=== PATIENT | female | born 1955 | race Caucasian/White ===

== ENCOUNTER 2018-05-15 12:17 | Outpatient (REF) | payer BC, SELFPAY ==
[2018-05-15 21:07] LABS: Absolute Basophil Count 0.02 k/cumm (0.0-0.2); Absolute Lymphocyte Count 1.47 k/cumm (1.2-3.4); Absolute Monocyte Count 0.43 k/cumm (0.11-0.7); Absolute Neutrophil Count 2.08 k/cumm (1.2-6.7); Basophils % 0.5; HCT 41.7 % (36.0-46.0); HGB 13.7 g/dL (12.0-15.5); Lymphocytes % 36.8; Mean Corp. HGB Concentration 32.9 g/dL (32.0-36.0); Mean Corpuscular Hemoglobin 31.1 pg (27.0-33.0); Mean Corpuscular Volume 94.6 fL (80-95); Mean Platelet Volume 10.8 fL (8.0-11.0); Monocytes % 10.8; Neutrophils % 51.9; Platelet Count 260 x1000/uL (130-400); RBC 4.41 m/cumm (4.00-5.20); RBC Distribution Width 13.7 % (11.7-14.6)
[2018-05-15 22:00] LABS: Iron 130 ug/dL (50-175); Total Iron Binding Capacity 346 ug/dL (250-450); Transferrin Sat 38 % (15-50)
[2018-05-15 22:12] LABS: Vitamin D 25 Total 24.6 ng/ml (30-100)
[2018-05-15 22:20] LABS: Cholesterol 226 mg/dL (50-200); Ferritin 22 ng/mL (8-388); HDL Cholesterol 72 mg/dL (40-60); LDL CHOLESTEROL 121 mg/dL (<100); TSH (W/Ref FT4) 0.93 uIU/mL (0.358-3.74); Triglyceride 156 mg/dL (30-150); Vitamin B12 365 pg/mL (193-986)
[2018-05-16 12:27] LABS: ALT 26 U/L (12-78); AST 22 U/L (15-37); Albumin 3.9 g/dL (3.4-5.0); Alkaline Phosphatase 93 U/L (46-116); Anion Gap 9.9 mmol/L (3-11); BUN 13 mg/dL (7-18); Bilirubin, Total 0.4 mg/dL (0.2-1.0); CO2 30.1 mmol/L (21.0-32.0); CREATININE 0.75 mg/dL (0.55-1.02); Calcium 9.7 mg/dL (8.5-10.1); Chloride 102 mmol/L (98-107); Glucose 105 mg/dL (70-100); Potassium 4.1 mmol/L (3.5-5.1); Sodium 142 mmol/L (136-145); Total Protein 7.3 g/dL (6.4-8.2)
== END 2018-05-15 12:37 ==
LOC: NCHCN 12:17
PROVIDERS: PCP Family Medicine; Visit Provider Nurse Practitioner Family
DX: R53.83 Other fatigue (principal); I10 Essential (primary) hypertension; E78.5 Hyperlipidemia, unspecified; R51 Headache; E11.9 Type 2 diabetes mellitus without complications; G47.33 Obstructive sleep apnea (adult) (pediatric); J01.90 Acute sinusitis, unspecified; I63.9 Cerebral infarction, unspecified
CPT/HCPCS: 80053; 80061; 82306; 83721; 82607; 82728; 83540; 83550; 84443; 85025

== ENCOUNTER 2018-09-01 09:44 | Outpatient (CLI) | payer BC, SELFPAY ==
[2018-09-01 10:19] LABS: Abs Immature Grans 0.01 k/cumm (0.0-0.09); Absolute Basophil Count 0.03 k/cumm (0.0-0.2); Absolute Lymphocyte Count 1.45 k/cumm (1.2-3.4); Absolute Monocyte Count 0.39 k/cumm (0.11-0.7); Absolute Neutrophil Count 2.15 k/cumm (1.2-6.7); Basophils % 0.7; HCT 41.7 % (36.0-46.0); HGB 13.6 g/dL (12.0-15.5); Immature Grans % 0.2; Mean Corp. HGB Concentration 32.6 g/dL (32.0-36.0); Mean Corpuscular Hemoglobin 31.8 pg (27.0-33.0); Mean Corpuscular Volume 97.4 fL (80-95); Mean Platelet Volume 10.2 fL (8.0-11.0); Monocytes % 9.7; Neutrophils % 53.4; Platelet Count 231 x1000/uL (130-400); RBC 4.28 m/cumm (4.00-5.20); RBC Distribution Width 13.3 % (11.7-14.6); White Blood Cell Count 4.03 k/cumm (4.4-10.8)
[2018-09-01 11:08] LABS: Iron 134 ug/dL (50-175); Total Iron Binding Capacity 308 ug/dL (250-450); Transferrin Sat 44 % (15-50)
[2018-09-01 11:36] LABS: Ferritin 48 ng/mL (8-388); Folate 4.9 ng/mL (8.6-20.0); TSH 1.02 uIU/mL (0.358-3.74); Vitamin B12 629 pg/mL (193-986)
== END 2018-09-01 10:04 ==
PROVIDERS: PCP Nurse Practitioner Family; Visit Provider Internal Medicine
DX: G47.33 Obstructive sleep apnea (adult) (pediatric) (principal)
CPT/HCPCS: 36415; 82607; 82728; 82746; 83540; 83550; 84443; 85025

== ENCOUNTER 2018-10-09 09:32 | Outpatient (REF) | payer BC, SELFPAY ==
[2018-10-09 13:38] LABS: Cholesterol 183 mg/dL (50-200); HDL Cholesterol 67 mg/dL (40-60); LDL CHOLESTEROL 93 mg/dL (<100); Triglyceride 71 mg/dL (30-150)
[2018-10-15 10:17] LABS: Hepatitis C Ab w Rflx HCV PCR Negative (NEGAT)
== END 2018-10-09 09:52 ==
LOC: NCHCN 09:32
PROVIDERS: PCP Nurse Practitioner Family; Visit Provider Nurse Practitioner Family
DX: E78.5 Hyperlipidemia, unspecified (principal); Z11.59 Encounter for screening for other viral diseases; I10 Essential (primary) hypertension; Z00.00 Encounter for general adult medical examination without abnormal findings
CPT/HCPCS: 80061; 83721; 86803

== ENCOUNTER 2018-10-17 16:00 | Outpatient (REF) | payer BC, SELFPAY ==
[2018-10-17 18:14] LABS: *AMPHETAMINES SCREEN URINE Negative (Negative); *BARBITURATES SCREEN URINE Negative (Negative); *BENZODIAZEPINES SCREEN URINE Negative (Negative); Cannabinoids THC Negative (Negative); Cocaine Screen,Urine Negative (Negative); METHADONE URINE SCREEN Negative (Negative); OPIATES URINE SCREEN Negative (Negative)
[2018-10-17 18:15] LABS: Tricyclic Antidepressants Negative (Negative)
[2018-10-17 21:10] LABS: ALT 33 U/L (12-78); AST 21 U/L (15-37); Albumin 3.8 g/dL (3.4-5.0); Alkaline Phosphatase 99 U/L (46-116); BUN 17 mg/dL (7-18); Bilirubin, Total 0.3 mg/dL (0.2-1.0); CREATININE 0.78 mg/dL (0.55-1.02); Calcium 9.8 mg/dL (8.5-10.1); Chloride 104 mmol/L (98-107); Glucose 95 mg/dL (70-100); Potassium 4.7 mmol/L (3.5-5.1); Sodium 140 mmol/L (136-145); Total Protein 7.1 g/dL (6.4-8.2)
== END 2018-10-17 16:20 ==
LOC: NCHCN 16:00
PROVIDERS: Internal Medicine; PCP Nurse Practitioner Family; Visit Provider Nurse Practitioner Family
DX: I10 Essential (primary) hypertension (principal); G47.419 Narcolepsy without cataplexy
CPT/HCPCS: 80053; 80307

== ENCOUNTER 2018-12-11 13:48 | Outpatient (REF) | payer BC, SELFPAY ==
[2018-12-11 21:45] LABS: Absolute Basophil Count 0.03 k/cumm (0.0-0.2); Absolute Lymphocyte Count 1.69 k/cumm (1.2-3.4); Absolute Neutrophil Count 1.57 k/cumm (1.2-6.7); Basophils % 0.8; HCT 42.3 % (36.0-46.0); HGB 13.8 g/dL (12.0-15.5); Lymphocytes % 45.8; Mean Corp. HGB Concentration 32.6 g/dL (32.0-36.0); Mean Corpuscular Hemoglobin 32.2 pg (27.0-33.0); Mean Corpuscular Volume 98.8 fL (80-95); Mean Platelet Volume 11.6 fL (8.0-11.0); Monocytes % 10.8; Neutrophils % 42.6; Platelet Count 237 x1000/uL (130-400); RBC 4.28 m/cumm (4.00-5.20); RBC Distribution Width 12.7 % (11.7-14.6); White Blood Cell Count 3.69 k/cumm (4.4-10.8)
[2018-12-11 22:15] LABS: ALT 30 U/L (12-78); AST 18 U/L (15-37); Albumin 3.8 g/dL (3.4-5.0); Alkaline Phosphatase 110 U/L (46-116); BUN 16 mg/dL (7-18); Bilirubin, Total 0.4 mg/dL (0.2-1.0); CREATININE 0.73 mg/dL (0.55-1.02); Calcium 9.1 mg/dL (8.5-10.1); Chloride 104 mmol/L (98-107); Glucose 98 mg/dL (70-100); Potassium 4.2 mmol/L (3.5-5.1); Sodium 142 mmol/L (136-145); TSH (W/Ref FT4) 0.85 uIU/mL (0.36-3.74); Total Protein 7.2 g/dL (6.4-8.2)
== END 2018-12-11 14:08 ==
LOC: NCHCN 13:48
PROVIDERS: Visit Provider Nurse Practitioner Family
DX: B37.2 Candidiasis of skin and nail (principal); M54.2 Cervicalgia; J01.90 Acute sinusitis, unspecified; I10 Essential (primary) hypertension; E78.5 Hyperlipidemia, unspecified; G47.33 Obstructive sleep apnea (adult) (pediatric); E66.9 Obesity, unspecified
CPT/HCPCS: 80053; 84443; 85025

== ENCOUNTER 2018-12-16 00:50 | Outpatient (CLI) | payer BC, SELFPAY ==
--- NOTE | 2018-12-16 08:00 | DI.US_ITS ---
SYMPTOM/DIAGNOSIS: FATTY INFILTRATION OF THE LIVER K76.0 ABDOMINAL ULTRASOUND: Routine examination. No priors The aorta is of normal caliber. The inferior vena cava is unremarkable. The liver measures 16 cm in length. It is isoechoic to the kidney. No hepatic mass is seen. The patient is status post cholecystectomy. The common duct measures 7.7 mm. This is likely due to the post cholecystectomy state. The pancreas, spleen and kidneys are unremarkable. No free fluid is seen in the abdomen. IMPRESSION: Status post cholecystectomy, otherwise unremarkable abdominal ultrasound
== END 2018-12-16 01:10 ==
PROVIDERS: PCP Nurse Practitioner Family; Visit Provider Nurse Practitioner Family
DX: K76.0 Fatty (change of) liver, not elsewhere classified (principal); Z90.49 Acquired absence of other specified parts of digestive tract
CPT/HCPCS: 76700

== ENCOUNTER 2018-12-24 10:31 | Outpatient (CLI) | payer BC, SELFPAY ==
--- NOTE | 2018-12-24 09:27 | DI.RAD_ITS ---
SYMPTOM/DIAGNOSIS: PAIN RIGHT HIP AND PELVIS: The hip joint spaces are well maintained. There is mild acetabular spurring and spurring at both greater trochanters. There is hardware in the lower lumbar spine. A sacral stimulator is noted. IMPRESSION: Mild degenerative changes of both hips.
== END 2018-12-24 10:51 ==
PROVIDERS: PCP Nurse Practitioner Family; Visit Provider Orthopaedic Surgery
DX: M25.551 Pain in right hip (principal); M16.0 Bilateral primary osteoarthritis of hip; Z96.9 Presence of functional implant, unspecified
CPT/HCPCS: 73502

== ENCOUNTER 2019-03-12 12:23 | Outpatient (REF) | payer BC, SELFPAY ==
[2019-03-12 21:21] LABS: Abs Immature Grans 0.01 k/cumm (0.0-0.09); Absolute Basophil Count 0.03 k/cumm (0.0-0.2); Absolute Lymphocyte Count 1.31 k/cumm (1.2-3.4); Absolute Monocyte Count 0.42 k/cumm (0.11-0.7); Absolute Neutrophil Count 2.19 k/cumm (1.2-6.7); Basophils % 0.8; HCT 42.3 % (36.0-46.0); HGB 13.7 g/dL (12.0-15.5); Immature Grans % 0.3; Lymphocytes % 33.1; Mean Corp. HGB Concentration 32.4 g/dL (32.0-36.0); Mean Corpuscular Hemoglobin 31.9 pg (27.0-33.0); Mean Corpuscular Volume 98.6 fL (80-95); Mean Platelet Volume 11.1 fL (8.0-11.0); Monocytes % 10.6; Neutrophils % 55.2; Platelet Count 250 x1000/uL (130-400); RBC 4.29 m/cumm (4.00-5.20); RBC Distribution Width 12.9 % (11.7-14.6); White Blood Cell Count 3.96 k/cumm (4.4-10.8)
== END 2019-03-12 12:43 ==
LOC: NCHCN 12:23
PROVIDERS: PCP Nurse Practitioner Family; Visit Provider Nurse Practitioner Family
DX: D72.819 Decreased white blood cell count, unspecified (principal); I10 Essential (primary) hypertension; R73.03 Prediabetes
CPT/HCPCS: 85025

== ENCOUNTER 2019-04-07 15:13 | Outpatient (REF) | payer BC, SELFPAY ==
[2019-04-07 16:09] LABS: *AMPHETAMINES SCREEN URINE POSITIVE (Negative); *BARBITURATES SCREEN URINE Negative (Negative); *BENZODIAZEPINES SCREEN URINE Negative (Negative); Cannabinoids THC Negative (Negative); Cocaine Screen,Urine Negative (Negative); METHADONE URINE SCREEN Negative (Negative); OPIATES URINE SCREEN Negative (Negative)
[2019-04-07 16:36] LABS: Tricyclic Antidepressants Negative (Negative)
== END 2019-04-07 15:33 ==
LOC: LBN 15:13
PROVIDERS: PCP Nurse Practitioner Family; Visit Provider Internal Medicine
DX: G47.419 Narcolepsy without cataplexy (principal)
CPT/HCPCS: 80307

== ENCOUNTER 2019-05-01 14:03 | Outpatient (CLI) | payer BC, SELFPAY ==
[2019-05-01 14:41] LABS: Absolute Basophil Count 0.02 k/cumm (0.0-0.2); Absolute Lymphocyte Count 1.77 k/cumm (1.2-3.4); Absolute Monocyte Count 0.54 k/cumm (0.11-0.7); Basophils % 0.4; HCT 41.2 % (36.0-46.0); HGB 13.4 g/dL (12.0-15.5); Lymphocytes % 34.5; Mean Corp. HGB Concentration 32.5 g/dL (32.0-36.0); Mean Corpuscular Hemoglobin 31.8 pg (27.0-33.0); Mean Corpuscular Volume 97.6 fL (80-95); Mean Platelet Volume 10.5 fL (8.0-11.0); Monocytes % 10.5; Neutrophils % 54.6; Platelet Count 231 x1000/uL (130-400); RBC 4.22 m/cumm (4.00-5.20); RBC Distribution Width 12.7 % (11.7-14.6); White Blood Cell Count 5.13 k/cumm (4.4-10.8)
[2019-05-01 15:42] LABS: ALT 23 U/L (14-59); AST 18 U/L (15-37); Albumin 3.9 g/dL (3.4-5.0); Alkaline Phosphatase 106 U/L (46-116); Anion Gap 8.2 mmol/L (3-11); BUN 17 mg/dL (7-18); Bilirubin, Total 0.4 mg/dL (0.2-1.0); CO2 30.8 mmol/L (21.0-32.0); CREATININE 0.86 mg/dL (0.55-1.02); Calcium 9.2 mg/dL (8.5-10.1); Chloride 101 mmol/L (98-107); Glucose 86 mg/dL (74-106); Potassium 4.1 mmol/L (3.5-5.1); Sodium 140 mmol/L (136-145); Total Protein 7.3 g/dL (6.4-8.2)
== END 2019-05-01 14:23 ==
PROVIDERS: PCP Nurse Practitioner Family; Visit Provider Internal Medicine Rheumatology
DX: L40.50 Arthropathic psoriasis, unspecified (principal); Z79.899 Other long term (current) drug therapy
CPT/HCPCS: 36415; 80053; 85025

== ENCOUNTER 2019-05-21 12:09 | Outpatient (REF) | payer BC, SELFPAY ==
[2019-05-21 21:49] LABS: Abs Immature Grans 0.01 k/cumm (0.0-0.09); Absolute Basophil Count 0.02 k/cumm (0.0-0.2); Absolute Lymphocyte Count 1.37 k/cumm (1.2-3.4); Absolute Monocyte Count 0.48 k/cumm (0.11-0.7); Absolute Neutrophil Count 1.44 k/cumm (1.2-6.7); Basophils % 0.6; HCT 40.4 % (36.0-46.0); HGB 13.3 g/dL (12.0-15.5); Immature Grans % 0.3 %; Lymphocytes % 41.3; Mean Corp. HGB Concentration 32.9 g/dL (32.0-36.0); Mean Corpuscular Hemoglobin 32.2 pg (27.0-33.0); Mean Corpuscular Volume 97.8 fL (80-95); Mean Platelet Volume 11.1 fL (8.0-11.0); Monocytes % 14.5; Neutrophils % 43.3; Platelet Count 236 x1000/uL (130-400); RBC 4.13 m/cumm (4.00-5.20); RBC Distribution Width 12.8 % (11.7-14.6); White Blood Cell Count 3.32 k/cumm (4.4-10.8)
[2019-05-21 22:20] LABS: ALT 21 U/L (14-59); AST 18 U/L (15-37); Albumin 3.6 g/dL (3.4-5.0); Alkaline Phosphatase 101 U/L (46-116); Anion Gap 10.4 mmol/L (3-11); BUN 16 mg/dL (7-18); Bilirubin, Total 0.4 mg/dL (0.2-1.0); CO2 28.6 mmol/L (21.0-32.0); CREATININE 0.68 mg/dL (0.55-1.02); Calcium 9.2 mg/dL (8.5-10.1); Chloride 104 mmol/L (98-107); Glucose 88 mg/dL (74-106); Potassium 4.3 mmol/L (3.5-5.1); Sodium 143 mmol/L (136-145)
== END 2019-05-21 12:29 ==
LOC: NCHCN 12:09
PROVIDERS: PCP Nurse Practitioner Family; Visit Provider Nurse Practitioner Family
DX: I10 Essential (primary) hypertension (principal); E78.5 Hyperlipidemia, unspecified; R19.7 Diarrhea, unspecified; F41.8 Other specified anxiety disorders; R73.03 Prediabetes
CPT/HCPCS: 80053; 85025

== ENCOUNTER 2019-10-13 15:37 | Outpatient (REF) | payer BC, SELFPAY ==
[2019-10-13 20:33] LABS: Absolute Basophil Count 0.02 k/cumm (0.0-0.2); Absolute Lymphocyte Count 1.38 k/cumm (1.2-3.4); Absolute Monocyte Count 0.51 k/cumm (0.11-0.7); Absolute Neutrophil Count 1.94 k/cumm (1.2-6.7); Basophils % 0.5; HCT 40.9 % (36.0-46.0); HGB 13.2 g/dL (12.0-15.5); Lymphocytes % 35.8; Mean Corp. HGB Concentration 32.3 g/dL (32.0-36.0); Mean Corpuscular Hemoglobin 31.7 pg (27.0-33.0); Mean Corpuscular Volume 98.1 fL (80-95); Mean Platelet Volume 11.5 fL (8.0-11.0); Monocytes % 13.2; Neutrophils % 50.5; Platelet Count 225 x1000/uL (130-400); RBC 4.17 m/cumm (4.00-5.20); RBC Distribution Width 13.1 % (11.7-14.6); White Blood Cell Count 3.85 k/cumm (4.4-10.8)
[2019-10-13 20:56] LABS: ALT 25 U/L (14-59); AST 20 U/L (15-37); Albumin 3.6 g/dL (3.4-5.0); Alkaline Phosphatase 126 U/L (46-116); Anion Gap 8.3 mmol/L (3-11); BUN 15 mg/dL (7-18); Bilirubin, Total 0.5 mg/dL (0.2-1.0); CO2 27.7 mmol/L (21.0-32.0); CREATININE 0.98 mg/dL (0.55-1.02); Calcium 9.1 mg/dL (8.5-10.1); Chloride 104 mmol/L (98-107); Estimated GFR 57.32 (mL/min/1.73m2); Glucose 114 mg/dL (74-106); Potassium 4.3 mmol/L (3.5-5.1); Sodium 140 mmol/L (136-145); Total Protein 7.1 g/dL (6.4-8.2)
[2019-10-13 21:02] LABS: Hemoglobin A1C 5.5 % (3.8-5.6)
[2019-10-13 21:53] LABS: Vitamin B12 357 pg/mL (193-986)
== END 2019-10-13 15:57 ==
LOC: NCHCN 15:37
PROVIDERS: PCP Nurse Practitioner Family; Visit Provider Nurse Practitioner Family
DX: I10 Essential (primary) hypertension (principal); E78.5 Hyperlipidemia, unspecified; R73.03 Prediabetes; R53.83 Other fatigue
CPT/HCPCS: 80053; 82607; 83036; 83735; 85025